=== PATIENT | female | born 1960 | race Caucasian/White ===

== ENCOUNTER 2020-08-22 07:10 | Outpatient (REF) | payer MEDICARE, SELFPAY ==
[2020-08-22 07:40] LABS: Hematocrit 36.9 % (37-47); Hemoglobin 12.1 g/dl (12.0-16.0); Mean Corpuscular HGB Conc 32.8 g/dl (31.0-35.0); Mean Corpuscular Hemoglobin 27.3 pg (27.0-33.0); Mean Corpuscular Volume 83.1 fL (80-98); Mean Platelet Volume 12.5 fL (9.4-12.3); Platelet Count 226 X10*3/uL (160-400); Red Blood Count 4.44 X10*6/uL (4.20-5.50); Red Cell Distribution Width 15.6 % (11.0-16.0); White Blood Count 10.6 X10*3/uL (4.8-10.8)
[2020-08-22 08:04] LABS: Alanine Aminotransferase 32 U/L (0-31); Alkaline Phosphatase 75 U/L (39-117); Aspartate Amino Transferase 27 U/L (5-31); Bilirubin Total 0.7 mg/dL (0.0-1.0); Blood Urea Nitrogen 78 mg/dL (9-16); Calcium 8.1 mg/dL (8.4-10.2); Glucose Random 245 mg/dL (60-115)
[2020-08-22 08:22] LABS: Anion Gap 22 (12-20); Carbon Dioxide 23 mmol/L (22-29); Chloride 91 mmol/L (96-108); Potassium 5.7 mmol/l (3.3-5.1); Sodium 130 mmol/L (135-145)
[2020-08-22 08:42] LABS: Estimated Glomerular Filt Rate 6
== END 2020-08-22 07:11 | disposition home or self-care (01) ==
LOC: HO.MMNH1L 07:10
PROVIDERS: Visit Provider Family Medicine
DX: E11.22 Type 2 diabetes mellitus with diabetic chronic kidney disease (principal); N18.6 End stage renal disease
CPT/HCPCS: 36415; 80053; 85027